=== PATIENT | female | born 1975 | race Caucasian/White ===

== ENCOUNTER 2018-11-04 16:25 | Emergency (ER) | payer MEDICARE, MEDICAID ==
[~2018-11-04 16:25] MED LIST: LAC100PT PO; LAMO100T52 PO; LAMO200T3 PO; LAMO200T46 PO; LAMO25TA60 PO; LOR10 PO; LOR5 PO; OMEP-218 PO; ONDA4TAB PO; PERA4TAB PO; PREG300C14 PO; PRI250 FT; PRI250 PO; PRIM250T73 PO
[2018-11-04 16:38] VITALS: BP 90/59
[2018-11-04] MEDS ORDERED: LORA-630 PO (16:45)
--- NOTE | 2018-11-04 17:15 | ER Report ---
History and Physical Time Seen By MD: 17:15 Hx. of Stated Complaint: PT SLIPPED ON FRONT PORCH, RIGHT ANKLE INJURY HPI/ROS Slipped on an icy step, and twister her right ankle. Now with pain in her right ankle. No other pain or injuries. Remainder of the 14 system rev: Yes Allergies: Coded Allergies: No Known Drug Allergies (Verified , 05/26/16) Home Meds Active Scripts Ondansetron (ZOFRAN ODT) 4 Mg Tab.rapdis, 4 MG PO Q6H PRN for NAUSEA/VOMITING, #20 TAB 0 Refills Prov:HEATH MITCHELL MD 05/26/16 Reported Medications Lorazepam (LORAZEPAM) 0.5 Mg Tablet, 0.5 MG PO HS 11/04/18 Primidone (PRIMIDONE) 250 Mg Tab, 250 MG PO BID, TAB 05/26/16 Perampanel (Fycompa) 4 Mg Tablet, 6 MG PO QDAY 05/26/16 Lamotrigine (LAMOTRIGINE) 200 Mg Tab.er.24, 200 MG PO BID 05/26/16 Lamotrigine (LAMOTRIGINE) 100 Mg Tablet, 100 MG PO BID 05/26/16 Lamotrigine (LAMOTRIGINE) 25 Mg Tablet, 25 MG PO BID 05/26/16 Reviewed Nurses Notes: Yes Old Medical Records Reviewed: Yes Hx Smoking: No Smoking Status: Never Smoker Exposure to Second Hand Smoke?: No Hx Substance Use Disorder: No Hx Alcohol Use: No Constitutional Vital Sign - Last 24 Hours 11/04/18 16:38 Temp 97.6 Pulse 67 Resp 14 B/P (MAP) 90/59 Pulse Ox 92 O2 Delivery Room Air Physical Exam General appearance: Alert no distress. Right ankle: TTP and swelling of the lateral malleolus. n/v in tact. DIFFERENTIAL DIAGNOSIS: After history and physical exam differential diagnosis was considered for fracture, dislocation, n/v injury Medical Decision Making EKG/Imaging Imaging X-ray: right ankle was obtained. I viewed the images myself on the PACS system. My interpretation of the images is: fracture of the distal fibula. The radiologist interpretation had no clinically significant variation from this interpretation. ED Course/Re-evaluation ED Course Uncomplicated fracture of the right distal fibula at the lateral malleolus. Unable to weight-bear. Neurovascularly intact. Given Tylenol and ibuprofen for pain. Posterior splint placed, and the patient given crutches. She will follow- up with an orthopedic surgeon tomorrow. Decision to Disposition Date: Nov 04, 2018 Decision to Disposition Time: 18:18 Depart Departure Latest Vital Signs Vital Signs Date Time Temp Pulse Resp B/P (MAP) Pulse Ox O2 Delivery O2 Flow Rate FiO2 11/04/18 16:38 97.6 67 14 90/59 92 Room Air Impression: Primary Impression: Lateral malleolar fracture Condition: Improved Disposition: HOME OR SELF-CARE Referrals: RYAN CAMARGO MD Patient Instructions: Ankle Fracture (ED) Additional Instructions: You can take 1 gram (two 500mg tabs) of tylenol three times a day and Ibuprofen 600mg every 6 hours for pain. Do not bear weight. Use crutches or a scooter. Problem Qualifiers Primary Impression: Lateral malleolar fracture Encounter type: initial encounter Fracture type: closed Fracture alignment: displaced Laterality: right Qualified Codes: S82.61XA - Displaced fracture of lateral malleolus of right fibula, initial encounter for closed fracture CAITIE DUBOSE MD Nov 04, 2018 17:15
--- NOTE | 2018-11-04 17:45 | RADIOLOGY IMAGING REPORT ---
FACILITY: [facility] PATIENT NAME: Aracely Liu : 1975 MR: [id number] V: [id number] EXAM DATE: ORDERING PHYSICIAN: CAITIE DUBOSE TECHNOLOGIST: [place] [facility] [place]acely [place] : 1975 Visit/Account:[id number] Date of Sevice: 11/04/2018 ANKLE 3 VIEW MIN RIGHT HISTORY: Fall COMPARISON: None FINDINGS: Mildly displaced transverse fracture of the lateral malleolus. Extensive adjacent soft tiss ue swelling. Talar dome is smooth in contour. Bohler angle is well maintained. Base of the 5th metata rsal is intact. IMPRESSION: 1. Mildly displaced transverse fracture of the lateral malleolus Report Dictated By: Rakan Manning MD at 11/04/2018 5:38 PM Report E-Signed By: Rakan Manning MD at 11/04/2018 5:41 PM WSN:[id number]
[2018-11-04] MEDS ORDERED: IBUPROFEN 600 MG TAB PO ONE (18:05)
[2018-11-04] MEDS ORDERED: ACETAMINOPHEN 500 MG TAB PO ONE (18:05)
[2018-11-06] MEDS ORDERED: FEXO1TAB63 PO (13:39)
[2018-11-06] MEDS ORDERED: CHOL10005 PO (13:39)
== END 2018-11-04 18:35 | disposition home or self-care (01) ==
LOC: ER 17:18
DX: S82.61XA Displaced fracture of lateral malleolus of right fibula, initial encounter for closed fracture (principal); X50.1XXA Overexertion from prolonged static or awkward postures, initial encounter
CPT/HCPCS: 73610; 99283; A9270

== ENCOUNTER 2018-11-11 00:20 | Day surgery (SDC) | payer MEDICARE, MEDICAID ==
[2018-11-11] VITALS (8 sets, daily range): BP systolic 106–136; BP diastolic 69–90
[~2018-11-11] VITALS: Ht 152.4 cm; Wt 61.7 kg
[~2018-11-11 00:20] MED LIST changes: +CHOL10005 PO; +FEXO1TAB63 PO; +LORA-630 PO
[2018-11-11] MEDS ORDERED: CELECOXIB 200 MG CAP PO ONE (06:00)
[2018-11-11] MEDS ORDERED: MIDAZOLAM 2 MG/2 ML VIAL IVP PRN (06:00)
[2018-11-11] MEDS ORDERED: ceFAZolin(*) 1 GM VIAL 1 GM in NS(*) 0.9% 100 ML ADDVANT BAG 100 ML IVPB ONE (06:00)
[2018-11-11] MEDS ORDERED: FAMOTIDINE 20 MG TAB PO ONE (06:00)
[2018-11-11] MEDS ORDERED: NORMOSOL R SOLN(*) 1000 ML BAG 1,000 ML IV PRN (06:00)
[2018-11-11] MEDS ORDERED: LIDOCAINE/SOD BICARB 8.4% SYR ID ONE (06:00)
[2018-11-11] MEDS ORDERED: ROPIVACAINE 0.2% 20 ML VIAL ONE ×2 (07:03→08:25)
[2018-11-11] MEDS ORDERED: EPINEPHrine HCL 1 MG/ML AMP ONE (08:23)
[2018-11-11] MEDS ORDERED: DEXAMETHASONE SOD PHOS 10MG/ML ONE (08:23)
[2018-11-11] MEDS ORDERED: ROPIVACAINE 0.5% 20 ML VIAL ONE (08:25)
[2018-11-11] MEDS ORDERED: LIDOCAINE MPF 1% 5 ML VIAL ONE ×2 (08:28→08:41)
[2018-11-11] MEDS ORDERED: fentaNYL CITR 100 MCG/2 ML AMP ONE ×2 (08:30→10:07)
[2018-11-11] MEDS ORDERED: PROPOFOL EMUL(*) 10MG/ML 20 ML 20 ML ONE (08:41)
[2018-11-11] MEDS ORDERED: DEXAMETHASONE SOD 4 MG/ML VIAL ONE (08:48)
[2018-11-11] MEDS ORDERED: ONDANSETRON 4 MG/2 ML VIAL ONE (09:20)
[2018-11-11] MEDS ORDERED: HYDR-653 PO (10:08)
--- NOTE | 2018-11-11 10:46 | OPERATIVE REPORT 1 ---
EVENT DATE: November 11, 2018 SURGEON: Jhony Sweet MD ANESTHESIOLOGIST: Brian Bah M.D. ANESTHESIA: General and block. INSURANCE VERIFICATION REP: SONI St, SURGICAL DRESSING [employer]KER PREOPERATIVE DIAGNOSIS Right distal fibular fracture. POSTOPERATIVE DIAGNOSIS Right distal fibular fracture. PROCEDURE PERFORMED Open reduction and internal fixation of distal fibular fracture, which is a Bee A type fracture. FINDINGS Patient had a distal fibular fracture that was amenable for fixation. There were no signs of syndesmosis opening. ESTIMATED BLOOD LOSS Minimal. DRAINS None. COMPLICATIONS None. IMPLANTS [place] hook plate. We actually used the left specific on the right specific side secondarily due to the fact that the holes lined up better and there was minimal difference associated with the plates. Screws accordingly with three locking screws distally and three cortical screws proximally. SPECIMENS None. TOURNIQUET TIME 40 minutes. INDICATIONS AND HISTORY The patient is a 43-year-old female that presented to my clinic for evaluation of a right distal fibular fracture. She had an ankle inversion injury that resulted in a displaced distal fibular fracture. We talked about the implications of this. She wanted to go ahead with operative fixation associated with it today, November 11, 2018, so the risks and benefits were discussed with the patient and informed consent was obtained at the left clinic visit and we got her set up to do this today, November 11, 2018. She understood there could be complications associated with it and issues associated with hardware retention and problems associated with the ankle long-term and we discussed this prior to the procedure. DESCRIPTION OF PROCEDURE The patient was brought into the operating room. She and the procedure were both verified. She was placed supine on the operating table and induced intubated by anesthesia after being given a block and then the right lower extremity was prepped and draped in the usual fascia and a time-out was observed, verifying the correct patient and procedure. The standard incision was made over the lateral aspect of the leg and just over the distal fibula. It was taken through the skin and subcutaneous tissue and I identified the fracture site itself. I removed some of the periosteum off the fracture site and then within the fracture site itself. Once I was able to remove the periosteum, I was able to reduce the fracture very well so, therefore, I then took a [place] distal fibular hook plate. We initially looked a right specific one but then used a left one as the holes lined up better and the only difference between the two plates is the distal proximal hole in the distal aspect of the plate. Once we did this, I was able to then reduce the fracture well using the tongs in there. We were then able to put them into the distal fibula and then push them in. Once I did this, it reduced the fracture well so, therefore, I put in a screw in a compression type fashion, drilling distally in order to move the joint proximally so that the plate would more proximally when I put in the screw. This was a 10 mm nonlocking screw into the oblong hole. Once I did this, C-arm images were taken, verifying that everything reduced well and the fracture was reduced excellently. Because of the angle of the plate, we did have a little bit of anterior migration of the proximal portion of the plate but it was not enough to change up what we did. This was then followed by two more screws proximally that were nonlocking bicortical screws. These had excellent fixation associated with this apparent so there were no signs of problems associated with this. I then was able to put three screws distally, which were locking screws, two 14's in the distal aspect of the fibula and one 16 just right at the joint line. These were all unicortical locking screws. I then took C-arm images, verifying that everything looked in good position. On all three films, it looked excellent and there were no signs or problems associated with the fracture itself and the fracture was well reduced. Once again, the plate was just slightly anterior on the proximal fibula but there were no signs or problems associated with it. I then irrigated with a copious amount of saline, closed the periosteum with 2-0 Vicryl. This was then followed by 3-0 Vicryl in the subcutaneous tissue and 4-0 Nylon in the skin in interrupted mattress type fashion. We anesthetized it with ropivacaine and did a block in this area and then we were able to dress with Xeroform, gauze, 4x4's and a standard AO splint. The patient was then awakened, extubated and transferred to PACU in stable condition. DENY
--- NOTE | 2018-11-11 11:15 | NUR ---
1115- PT BROUGHT TO STEP DOWN BAY 8, PT IS A/O X 3, FLAT AFFECT WILL ANSWER QUESTIONS APPROPRIATELY, USES FACES/PAIN SCALE AND RATES PAIN AT A 6/10, POPLITEAL BLOCK IN PLACE PER ANESTHESIA, PT IS POLITE AND COOPERATIVE WITH CARES, PT IS ON 1LPM VIA NC AND MAINTAINING SATS RESPIRATIONS AND AIRWAY, VSS, SBAR REPORT FROM Sue HENSLEY RN, PT HAS SOFT SPLINT IN PLACE TO RIGHT LE, ABLE TO ASSESS CAP REFILL AND PULSES ARE WNL, IV WAS SL AT THIS TIME, NO S/S OF INFILTRATION 1120- JESSE MOYA AT BEDSIDE ALONG WITH FATHER- BK 1123- PT TITRATED DOWN TO 0.5 LPM VIA NC, PT MAINTAINING SATS, RESPIRATIONS AND AIRWAY, WILL CONTINUE TO MONITOR, PT TOLERATING JELLO AND APPLE JUICE
[2018-11-11] MEDS ORDERED: APAP/HYDROCODONE 325/5 TAB PO ONE (11:25)
--- NOTE | 2018-11-11 11:38 | NUR ---
1138- PO ANALGESIC GIVEN, PT TOLERATED WELL, SEE EMAR FOR DETAILS
--- NOTE | 2018-11-11 11:39 | RADIOLOGY IMAGING REPORT ---
[place] [facility] [place] NAME: Aracely Liu : 1975 MR: [id number] V: [id number] EXAM DATE: ORDERING PHYSICIAN: RYAN CAMARGO TECHNOLOGIST: Location: [facility] [place] Patient: Aracely Liu : 1975 Visit/Account:[id number] Date of Sevice: 11/11/2018 C-ARM FLUORO 1 HR HISTORY: ORIF RIGHT DISTAL FIBULA intraoperative films-9 films) FINDINGS: This study demonstrates plating of the fibula with good anatomic alignment. IMPRESSION: Intraoperative films as described. Fluoroscopic time of 16.1 seconds. AK 0.295mGy Report Dictated By: Delfino Chaney MD at 11/11/2018 11:34 AM Report E-Signed By: Delfino Chaney MD at 11/11/2018 11:35 AM WSN:[id number]
--- NOTE | 2018-11-11 11:40 | NUR ---
1140- REVIEWED D/C INSTRUCTIONS WITH PT AND FAMILY
--- NOTE | 2018-11-11 11:53 | NUR ---
1153- PT PLACED ON RA
--- NOTE | 2018-11-11 11:59 | NUR ---
1159- SATS DROPPED TO 87%, PT DEEP BREATHING SATS CARIDAD TO 90% ON RA, MOM REPORTS SATS FALL WHEN PT GETS SLEEPY 1200- PLACED PT BACK ON 0.5LPM VIA NC, WHILE PT RESTING/SLEEPING WILL CONTINUE TO MONITOR
--- NOTE | 2018-11-11 12:27 | NUR ---
1227- PT REQUESTING CRACKERS, PLACED PT BACK ON RA
--- NOTE | 2018-11-11 12:45 | NUR ---
1245- SATS DROPPED TO 87% ON RA, PT INSTRUCTED TO DEEP BREATHE, SATS CARIDAD TO 90% 1246- SATS DROPPED BACK TO 82% ON RA, PT INSTRUCTED TO DEEP BREATHE, SATS CARIDAD TO 90% 1248- SITTING VSS 1249- SATS DROPPED AGAIN TO 82% ON RA, PLACED PT ON 1LPM VIA NC, SATS CARIDAD TO 92% 1251- STANDING VSS 1257- PT UP TO RESTROOM, SBA X 1, WHEEL CHAIR TO TRANSFER 1305- BACK FROM RESTROOM, VOID X 1, 94% ON 1LPM VIA NC, PT PLACED BACK IN BED, PILLOW UNDER RIGHT LEG FOR ELEVATION 1320- CONSULT DR. NAIK REGARDING RESPIRATORY, HOME O2 ORDERED FOR 1LPM VIA NC FOR 48 HOURS 1340- SBAR REPORT GIVEN TO AREN LING RN 1405- RESUMED CARE 1407- LINCARE ARRIVED REVIEWED HOME O2 1412- D/C IV WITH CATH INTACT, PRESSURE DRESSING APPLIED WITH GAUZE AND COBAND 1420- PT WHEEL CHAIRED OUT TO VEHICLE, ACCOMPANIED BY MOM/DAD AND DESMOND MCDONALD, PORTABLE O2 IN PLACE AT TIME OF DISCHARGE
== END 2018-11-11 11:15 | disposition home or self-care (01) ==
LOC: OR 00:20
PROVIDERS: ATTEND Orthopaedic Surgery
DX: S82.61XA Displaced fracture of lateral malleolus of right fibula, initial encounter for closed fracture (principal); W00.0XXA Fall on same level due to ice and snow, initial encounter
CPT/HCPCS: 27792; 76000; A9270; J0171; J0690; J1100; J2001; J2250; J2405; J2704; J2795; J3010; J7050

== ENCOUNTER 2019-03-12 15:15 | Outpatient (RCR) | payer MEDICARE, MEDICAID ==
--- NOTE | 2019-01-27 18:10 | PT INITIAL EVALUATION ---
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 Tiara developed normally to 1 y/o then had meningitis or encephalitis. She has developmental delay and B [place]. She stays home, sedentary. She had R fibular ORIF for fracture at home, slip on ice 11/04/18 and is released by Dr. Sweet. Chrissie would like Aracely to walk with her on even and uneven ground for health. She relates Aracely is afraid of falling and holds her mother's arm if ambulating more than a few minutes in public. REHAB PROBLEM LIST: Impaired Cognition Decreased Strength Decreased Balance Decreased Function Decreased Gait PREVIOUS MEDICAL HISTORY: Developmental delay, B hearing implants, R fibular fracture. OCCUPATION: Disabled. OBJECTIVE: Posture: Heel together, upright trunk, head midline. Strength: R LE 4/5, L LE 4-/5. B UE 4+/5. Palpation: Mild B foot tremors. Special Tests: Mild clonus L ankle, 5 beats, 3 beats R ankle, not at the hands. Vestibular Ocular Reflex x1 with midline corrective saccades in the horizontal field going L and R, mild dizziness Mobility: Independent sit/pilot captain one attempt without UE use. Gait: Functional Gait Assessment 67% impairment. Aracely weaves R with gait with head rotation, forward eyes closed >20", ambulates 4 steps tandem gait with reduced foot kinesthetics. Change of gait speed is minimal. Gait on firm, normal cadance with mild foot kinesthetic changes L and R. Turns L and R slowly with control. Foot tapping on 6" box with LOB due to trunk lean L. Balance: [place] Balance Assessment 44/56, a 21% impairment. Aracely has LOB with attempting tandem stand but can hold tandem 30 seconds is assisted to this posture. Single leg stand 2 seconds R, 1 second L. Static stand on Airex with eyes shut: sinks onto heels, mild postural sway. Other Objective Findings: O2 95% on room air, HR 76. ASSESSMENT: Aracely Liu presents with both vestibular hypofunction R>L and medication affecting balance. She has mild ankle proprioceptive balance changes and B LE weakness also affecting balance. She's an excellent candidate to improve balance, gait, strength to reduce fear of falling and make her a more safe community ambulator. Short Term Goals/Patient's Goals One month: Tiara walks steadily on uneven ground, 15 to 20 minutes. Two months: Tiara demonstrates corrective balance reactions on uneven surfaces, walks confidently in public to reduce fear of falling. PLAN: Patient to be seen for Strengthening/condition, Stretching, Neuromuscular Re-ed, Gait Trg/Balance Trg, Home Exercise Program 2x/Week for 2 Months Thank you for this referral. If you have any questions, comments, or concerns about this report or plan, please contact me at . Physician signature date MTDD
--- NOTE | 2019-02-27 16:46 | PT PLAN OF CARE ---
Physician: Dr. Kamla Joseph Patient is being seen: 2x/week Therapist: Tawnya Diez Medical Diagnosis: Imbalance Treatment Diagnosis: Same, vestibular hypofunction Date of Onset: 09/04/18 Date of Initial Evaluation: 01/27/19 Date patient was last seen: 02/27/19 Number of treatments: 10 Number of cancellations/No shows: 0 INTERVENTIONS: Strengthening, Neuromuscular Re-ed, Gait Trg/Balance Trg GOALS/PATIENT'S GOAL: One month: Tiara walks steadily on uneven ground, 15 to 20 minutes.not met Two months: Tiara demonstrates corrective balance reactions on uneven surfaces (met), walks confidently in public to reduce fear of falling (met) Patient Compliance: Excellent Prognosis: Excellent Reasons for continuing therapy: S: Aracely's mother, Chrissie, relates Aracely's ambulating in public without holding onto her, uses stairs independently now. Posture: Heel together, upright trunk, head midline. ROM: Strength: R LE 4+/5, L LE 4/5. Palpation: Mild B foot tremors. Special Tests: Mild clonus L ankle, 5 beats, 3 beats R ankle, not at the hands. Vestibular Ocular Reflex x1 without saccades, no dizziness. Vestibular exercises with normal balance reactions and trunk control. Gait/Balance: Functional Gait Index 20% impairment. [place] Balance Assessment 50/56, a low fall risk. Mobility: Independent sit/clinical rn liaison one attempt without UE use. A/P: Aracely Liu has habituated her balance system well, and needs some strengthening. If you agree, we'll continue strengthening two more weeks, re- assess strength to see if she's ready for DC to HEP. Thank you. Dr[facility] Kamla Joseph [facility]
[~2019-03-12 15:15] MED LIST changes: +HYDR-653 PO; -LAMO25TA60 PO; +LAMO25TA68 PO
--- NOTE | 2019-03-13 08:25 | PT PLAN OF CARE ---
Physician: Dr. Kamla Joseph Patient is being seen: 2x/week Therapist: Tawnya Diez, PT Medical Diagnosis: Imbalance Treatment Diagnosis: Same, vestibular hypofunction Date of Onset: 09/04/18 Date of Initial Evaluation: 01/27/19 Date patient was last seen: 03/12/19 Number of treatments: 14 Number of cancellations/No shows: 0 INTERVENTIONS: Strengthening/condition Stretching Neuromuscular Re-ed Gait Trg/Balance Trg Home Exercise Program GOALS/PATIENT'S GOAL: One month: Tiara walks steadily on uneven ground, 15 to 20 minutes. not met - they haven't gone for a walk Two months: Tiara demonstrates corrective balance reactions on uneven surfaces, walks confidently in public to reduce fear of falling. both met Patient Compliance: Excellent Prognosis: Excellent Reasons for discontinuing therapy: S: Aracely and her mother relate they haven't done Aracely's HEP yet. Her mother relates she's walking independently in public, using stairs normally now. O: Balance: Aracely demonstrates corrective balance reactions, normal VOR x1. Gait: Independent gait with normal line of progression with head motion, turns < 3 seconds. Strength: LE's 4+/5. A/P: Aracely Liu has improved gait, balance, strength. I'll DC PT to HEP. Thank you. DENY
== END 2019-03-12 18:00 | disposition home or self-care (01) ==
LOC: PT 15:15
PROVIDERS: ATTEND Psychiatry & Neurology Neurology
DX: R26.89 Other abnormalities of gait and mobility (principal); H81.90 Unspecified disorder of vestibular function, unspecified ear; G40.909 Epilepsy, unspecified, not intractable, without status epilepticus
CPT/HCPCS: 97162